=== PATIENT | male | born 1950 | race African-American/Black ===

== ENCOUNTER 2021-11-01 19:17 | Inpatient (IN) | payer OTHER ==
[2021-11-01] MEDS ORDERED: PIPERACILLIN/TAZOB 2.25 GM 2.25 GM in DEXTROSE 5%-WATER - 50 ML IVPB ONE ×3 (20:10→21:21)
[2021-11-01] MEDS ORDERED: VANCOMYCIN 1 GM in D5W (PRE-DOCKED) 1,000 MG/250 ML IVPB ONE (20:10)
[2021-11-01] MEDS ORDERED: PIPERACILLIN/TAZOB 3.375 GM 3.375 GM in DEXTROSE 5%-WATER - 50 ML IVPB ONE (20:22)
[2021-11-01] MEDS ORDERED: PIPERACILLIN/TAZOB 2.25 GM 2.25 GM/50 ML BAG IVPB ONE ×2 (20:24→21:24)
[2021-11-01] MEDS ORDERED: VANCOMYCIN 1 GRAM (PRE-DOCKED) 1,000 MG/250 ML BAG IVPB ONE (20:25)
[2021-11-01 22:03] LABS: BASO % 0.5 % (0-2.0); HEMATOCRIT 33.2 % (35.4-49); HEMOGLOBIN 10.7 GM/dL (11.7-16.9); LYMPH % 45.9 % (8-40); MCH 24.1 pg (25.7-33.7); MCHC 32.3 g/dl (32.0-35.9); MEAN CELL VOLUME 74.7 fl (80-96); MEAN PLT VOLUME 8.7 fl (7.5-11.1); NEUT % 43.6 % (42.8-82.8); PLATELET COUNT 233 10^3/uL (134-434); RBC 4.45 M/mm3 (4.00-5.60); RDW 24.2 % (11.9-15.9); WHITE BLOOD COUNT 7.2 K/mm3 (4.0-10.0)
[2021-11-01 22:05] LABS: CHLORIDE 102 mmol/L (98-107); SODIUM 135 mmol/L (136-145)
[2021-11-01 22:08] LABS: ALBUMIN 3.2 g/dl (3.4-5.0); BLOOD UREA NITROGEN 16.7 mg/dL (7-18); CO2 30 mmol/L (21-32); GLUCOSE,RANDOM 207 mg/dL (74-106)
[2021-11-01 22:11] LABS: SGOT/AST 60 U/L (15-37); SGPT/ALT 38 U/L (13-61)
[2021-11-01 22:13] LABS: BILIRUBIN,TOTAL 0.4 mg/dL (0.2-1); TOT PROT 8.8 g/dl (6.4-8.2)
[2021-11-01 22:14] LABS: ALK PHOS 92 U/L (45-117)
[2021-11-01 22:21] LABS: ANION GAP 3 MMOL/L (8-16)
[2021-11-01 23:24] LABS: ANISOCYTOSIS 1+; MACROCYTOSIS 0; PLATELET ESTIMATE NORMAL; TARGET CELLS 2+
[2021-11-01 23:42] LABS: INR 1.02 (0.83-1.09); PROTHROMBIN TIME (PATIENT) 11.9 SEC (9.7-13.0)
[2021-11-01 23:45] LABS: ACTIVATED PTT 27.8 SECONDS (25.2-36.5)
[2021-11-02 00:29] LABS: BLOOD UREA NITROGEN 17.6 mg/dL (7-18)
[2021-11-02] MEDS ORDERED: VANCOMYCIN 1 GM PREMIX - 1 GM/200 ML BAG IVPB SCH ×2 (08:00→09:00)
[2021-11-02] MEDS ORDERED: VANCOMYCIN 1 GRAM (PRE-DOCKED) 1 GM/250 ML BAG IVPB SCH (09:00)
[2021-11-02] MEDS ORDERED: ENOXAPARIN NA (PORCINE) 40 MG/0.4 ML DISP.SYRIN SQ ONE (09:15)
[2021-11-02] MEDS ORDERED: PIPERACILLIN/TAZOB 3.375 GM 3.375 GM/50 ML BAG IVPB ONE (09:16)
[2021-11-02] MEDS: ENOXAPARIN NA (PORCINE) 40 MG/0.4 ML DISP.SYRIN SQ SCH (09:28)
[2021-11-02] MEDS ORDERED: PIPERACILLIN/TAZOB 3.375 GM 3.375 GM in DEXTROSE 5%-WATER - 50 ML IVPB SCH (10:00)
[2021-11-02 10:26] VITALS: BMI 27.0
[2021-11-02] MEDS: INSULIN SLIDING SCALE (NOVOLOG) 1 VIAL SQ SCH ×3 (11:10→22:23)
[2021-11-02] MEDS ORDERED: DEXTROSE 5%-WATER 100 ML IVPB ONE (13:03)
[2021-11-02] MEDS: CEFTRIAXONE 2 GM in DEXTROSE 5%-WATER 2 GM/100 ML BAG IVPB SCH (13:14)
[2021-11-03] MEDS: INSULIN SLIDING SCALE (NOVOLOG) 1 VIAL SQ SCH ×4 (06:30→21:16)
[2021-11-03] MEDS ORDERED: DEXTROSE 5%-WATER 100 ML IVPB ONE ×2 (09:23→09:27)
[2021-11-03] MEDS: ENOXAPARIN NA (PORCINE) 40 MG/0.4 ML DISP.SYRIN SQ SCH (09:25)
[2021-11-03] MEDS: CEFTRIAXONE 2 GM in DEXTROSE 5%-WATER 2 GM/100 ML BAG IVPB SCH (09:26)
[2021-11-03 10:29] LABS: BASO % 0.8 % (0-2.0); EOS % 2.4 % (0-4.5); HEMATOCRIT 36.4 % (35.4-49); HEMOGLOBIN 11.5 GM/dL (11.7-16.9); MCH 23.5 pg (25.7-33.7); MCHC 31.5 g/dl (32.0-35.9); MEAN CELL VOLUME 74.6 fl (80-96); MEAN PLT VOLUME 8.2 fl (7.5-11.1); MONO % 11.9 % (3.8-10.2); NEUT % 39.9 % (42.8-82.8); PLATELET COUNT 250 10^3/uL (134-434); RBC 4.88 M/mm3 (4.00-5.60); RDW 24.7 % (11.9-15.9); WHITE BLOOD COUNT 4.9 K/mm3 (4.0-10.0)
[2021-11-03 10:44] LABS: ALBUMIN 2.9 g/dl (3.4-5.0); BLOOD UREA NITROGEN 13.7 mg/dL (7-18)
[2021-11-03 10:47] LABS: CREATININE 0.9 mg/dL (0.55-1.3)
[2021-11-03 10:49] LABS: BILIRUBIN,TOTAL 0.2 mg/dL (0.2-1); TOT PROT 7.9 g/dl (6.4-8.2)
[2021-11-03 11:21] LABS: ERYTHROCYTE SEDIMENTATION RATE 23 mm/hr (0-20)
[2021-11-03] MEDS ORDERED: PIPERACILLIN/TAZOBACTAM 3.375 GM VIAL IVPB ONE (16:37)
[2021-11-03] MEDS ORDERED: DEXTROSE 5%-WATER - 50 ML IVPB ONE (16:37)
[2021-11-03] MEDS: PIPERACILLIN/TAZOB 3.375 GM 3.375 GM in DEXTROSE 5%-WATER - 50 ML IVPB SCH (17:35)
[2021-11-04] MEDS ORDERED: PIPERACILLIN/TAZOBACTAM 3.375 GM VIAL IVPB ONE ×3 (00:03→16:50)
[2021-11-04] MEDS ORDERED: DEXTROSE 5%-WATER - 50 ML IVPB ONE ×2 (00:03→11:27)
[2021-11-04] MEDS: PIPERACILLIN/TAZOB 3.375 GM 3.375 GM in DEXTROSE 5%-WATER - 50 ML IVPB SCH ×3 (01:04→17:23)
[2021-11-04] MEDS: INSULIN SLIDING SCALE (NOVOLOG) 1 VIAL SQ SCH ×4 (06:19→21:22)
[2021-11-04] MEDS ORDERED: LIDOCAINE HCL 1%, 10 MG/ML (20ML VIAL) ONE (08:29)
[2021-11-04] MEDS ORDERED: MIDAZOLAM HCL 2 MG/2 ML SINGLE DOSE VIAL ONE ×2 (08:38→08:49)
[2021-11-04] MEDS ORDERED: LIDOCAINE HCL 1%, 10 MG/ML (20ML VIAL) NR ONE (08:43)
[2021-11-04] MEDS: ENOXAPARIN NA (PORCINE) 40 MG/0.4 ML DISP.SYRIN SQ SCH (09:00)
[2021-11-04] MEDS ORDERED: ACETAMINOPHEN 325 MG TABLET (FP) PO PRN (09:49)
[2021-11-04] MEDS ORDERED: ONDANSETRON 4 MG/2 ML VIAL IVPUSH PRN (09:49)
[2021-11-04] MEDS ORDERED: JANUMET PO SCH ×2 (10:00)
[2021-11-04] MEDS ORDERED: LANTUS 20 UNIT SQ SCH (10:00)
[2021-11-04] MEDS ORDERED: PATIENT'S OWN MEDICATION (NON-FORMULARY) (Jardiance 10 MG) PO SCH ×2 (10:00)
[2021-11-04] MEDS ORDERED: COZAAR PO SCH (10:00)
[2021-11-04] MEDS ORDERED: PATIENT'S OWN MEDICATION (NON-FORMULARY) (Asa - 81 MG) PO SCH (10:00)
[2021-11-04] MEDS: ASPIRIN COATED 81 MG TABLET.EC PO SCH (11:34)
[2021-11-04] MEDS: LOSARTAN POTASSIUM 25 MG TABLET PO SCH (11:34)
[2021-11-04] MEDS: metFORMIN HCL 500 MG TABLET (FP) PO SCH (17:22)
[2021-11-04] MEDS: sitaGLIPtin PHOSPHATE 50 MG TABLET PO SCH (17:22)
[2021-11-04] MEDS: ROSUVASTATIN CA 5 MG TABLET PO SCH (21:22)
[2021-11-04] MEDS ORDERED: ROSUVASTATIN CA 5 MG TABLET PO SCH (22:00)
[2021-11-05] MEDS ORDERED: PIPERACILLIN/TAZOBACTAM 3.375 GM VIAL IVPB ONE ×4 (02:19→16:42)
[2021-11-05] MEDS ORDERED: DEXTROSE 5%-WATER - 50 ML IVPB ONE ×3 (02:20→16:42)
[2021-11-05] MEDS: PIPERACILLIN/TAZOB 3.375 GM 3.375 GM in DEXTROSE 5%-WATER - 50 ML IVPB SCH ×3 (02:21→18:18)
[2021-11-05] MEDS: INSULIN (LEVEMIR) 100 UNITS/ML UNITS SQ SCH (06:23)
[2021-11-05] MEDS: sitaGLIPtin PHOSPHATE 50 MG TABLET PO SCH ×2 (06:23→17:21)
[2021-11-05] MEDS: INSULIN SLIDING SCALE (NOVOLOG) 1 VIAL SQ SCH ×4 (06:23→21:55)
[2021-11-05] MEDS: metFORMIN HCL 500 MG TABLET (FP) PO SCH ×2 (06:23→17:21)
[2021-11-05] MEDS ORDERED: INSULIN (NOVOLOG) ASPART 100 UNITS/ML 10ML VIAL ONE ×2 (07:04→10:37)
[2021-11-05 09:25] LABS: BASO % 0.3 % (0-2.0); EOS % 2.4 % (0-4.5); HEMATOCRIT 35.7 % (35.4-49); HEMOGLOBIN 11.4 GM/dL (11.7-16.9); LYMPH % 37.5 % (8-40); MCH 23.6 pg (25.7-33.7); MCHC 31.9 g/dl (32.0-35.9); MEAN CELL VOLUME 74.1 fl (80-96); MEAN PLT VOLUME 8.1 fl (7.5-11.1); MONO % 14.2 % (3.8-10.2); NEUT % 45.6 % (42.8-82.8); PLATELET COUNT 246 10^3/uL (134-434); RBC 4.82 M/mm3 (4.00-5.60); RDW 24.6 % (11.9-15.9); WHITE BLOOD COUNT 6.2 K/mm3 (4.0-10.0)
[2021-11-05 10:01] LABS: ALBUMIN 2.8 g/dl (3.4-5.0); BLOOD UREA NITROGEN 12.1 mg/dL (7-18); CALCIUM 8.8 mg/dL (8.5-10.1)
[2021-11-05 10:06] LABS: BILIRUBIN,TOTAL 0.9 mg/dL (0.2-1)
[2021-11-05 10:07] LABS: TOT PROT 7.4 g/dl (6.4-8.2)
[2021-11-05] MEDS: ENOXAPARIN NA (PORCINE) 40 MG/0.4 ML DISP.SYRIN SQ SCH (11:00)
[2021-11-05] MEDS: LOSARTAN POTASSIUM 25 MG TABLET PO SCH (11:00)
[2021-11-05] MEDS: ASPIRIN COATED 81 MG TABLET.EC PO SCH (11:00)
[2021-11-05] MEDS: ROSUVASTATIN CA 5 MG TABLET PO SCH (21:54)
[2021-11-06] MEDS ORDERED: DEXTROSE 5%-WATER - 50 ML IVPB ONE ×3 (01:39→16:56)
[2021-11-06] MEDS ORDERED: PIPERACILLIN/TAZOBACTAM 3.375 GM VIAL IVPB ONE ×3 (01:39→16:56)
[2021-11-06] MEDS: PIPERACILLIN/TAZOB 3.375 GM 3.375 GM in DEXTROSE 5%-WATER - 50 ML IVPB SCH ×3 (01:52→17:00)
[2021-11-06] MEDS: metFORMIN HCL 500 MG TABLET (FP) PO SCH ×2 (06:50→16:37)
[2021-11-06] MEDS: sitaGLIPtin PHOSPHATE 50 MG TABLET PO SCH ×2 (06:51→16:37)
[2021-11-06] MEDS: INSULIN (LEVEMIR) 100 UNITS/ML UNITS SQ SCH (06:51)
[2021-11-06] MEDS: INSULIN SLIDING SCALE (NOVOLOG) 1 VIAL SQ SCH ×4 (06:52→21:26)
[2021-11-06] MEDS: ENOXAPARIN NA (PORCINE) 40 MG/0.4 ML DISP.SYRIN SQ SCH (09:34)
[2021-11-06] MEDS: ASPIRIN COATED 81 MG TABLET.EC PO SCH (09:34)
[2021-11-06] MEDS: LOSARTAN POTASSIUM 25 MG TABLET PO SCH (09:34)
[2021-11-06 10:54] LABS: BASO % 0.5 % (0-2.0); EOS % 2.3 % (0-4.5); HEMATOCRIT 36.8 % (35.4-49); HEMOGLOBIN 11.5 GM/dL (11.7-16.9); LYMPH % 35.8 % (8-40); MCH 23.7 pg (25.7-33.7); MCHC 31.3 g/dl (32.0-35.9); MEAN CELL VOLUME 75.6 fl (80-96); MEAN PLT VOLUME 8.3 fl (7.5-11.1); MONO % 13.8 % (3.8-10.2); NEUT % 47.6 % (42.8-82.8); PLATELET COUNT 244 10^3/uL (134-434); RBC 4.87 M/mm3 (4.00-5.60); RDW 25.2 % (11.9-15.9); WHITE BLOOD COUNT 7.1 K/mm3 (4.0-10.0)
[2021-11-06 11:21] LABS: ALBUMIN 2.8 g/dl (3.4-5.0); CALCIUM 9.2 mg/dL (8.5-10.1)
[2021-11-06 11:26] LABS: BILIRUBIN,TOTAL 0.5 mg/dL (0.2-1); TOT PROT 7.6 g/dl (6.4-8.2)
[2021-11-06] MEDS: ROSUVASTATIN CA 5 MG TABLET PO SCH (21:26)
[2021-11-07] MEDS ORDERED: PIPERACILLIN/TAZOBACTAM 3.375 GM VIAL IVPB ONE ×3 (01:21→17:20)
[2021-11-07] MEDS ORDERED: DEXTROSE 5%-WATER - 50 ML IVPB ONE ×3 (01:21→17:20)
[2021-11-07] MEDS: PIPERACILLIN/TAZOB 3.375 GM 3.375 GM in DEXTROSE 5%-WATER - 50 ML IVPB SCH ×3 (01:29→17:22)
[2021-11-07] MEDS: sitaGLIPtin PHOSPHATE 50 MG TABLET PO SCH ×2 (06:22→17:10)
[2021-11-07] MEDS: metFORMIN HCL 500 MG TABLET (FP) PO SCH ×2 (06:22→17:10)
[2021-11-07] MEDS: INSULIN (LEVEMIR) 100 UNITS/ML UNITS SQ SCH (06:47)
[2021-11-07] MEDS: INSULIN SLIDING SCALE (NOVOLOG) 1 VIAL SQ SCH ×4 (06:48→21:15)
[2021-11-07] MEDS: LOSARTAN POTASSIUM 25 MG TABLET PO SCH (09:20)
[2021-11-07] MEDS: ENOXAPARIN NA (PORCINE) 40 MG/0.4 ML DISP.SYRIN SQ SCH (09:20)
[2021-11-07] MEDS: ASPIRIN COATED 81 MG TABLET.EC PO SCH (09:20)
[2021-11-07] MEDS: ROSUVASTATIN CA 5 MG TABLET PO SCH (21:14)
[2021-11-08] MEDS ORDERED: PIPERACILLIN/TAZOBACTAM 3.375 GM VIAL IVPB ONE ×3 (01:28→16:53)
[2021-11-08] MEDS ORDERED: DEXTROSE 5%-WATER - 50 ML IVPB ONE ×3 (01:28→16:53)
[2021-11-08] MEDS: PIPERACILLIN/TAZOB 3.375 GM 3.375 GM in DEXTROSE 5%-WATER - 50 ML IVPB SCH ×3 (01:35→17:28)
[2021-11-08] MEDS: metFORMIN HCL 500 MG TABLET (FP) PO SCH ×2 (06:09→16:57)
[2021-11-08] MEDS: INSULIN SLIDING SCALE (NOVOLOG) 1 VIAL SQ SCH ×4 (06:10→21:21)
[2021-11-08] MEDS: INSULIN (LEVEMIR) 100 UNITS/ML UNITS SQ SCH (06:10)
[2021-11-08] MEDS: sitaGLIPtin PHOSPHATE 50 MG TABLET PO SCH ×2 (06:10→16:57)
[2021-11-08] MEDS: ENOXAPARIN NA (PORCINE) 40 MG/0.4 ML DISP.SYRIN SQ SCH (09:39)
[2021-11-08] MEDS: ASPIRIN COATED 81 MG TABLET.EC PO SCH (09:40)
[2021-11-08] MEDS: LOSARTAN POTASSIUM 25 MG TABLET PO SCH (09:40)
[2021-11-08] MEDS: ROSUVASTATIN CA 5 MG TABLET PO SCH (21:24)
[2021-11-09] MEDS ORDERED: PIPERACILLIN/TAZOBACTAM 3.375 GM VIAL IVPB ONE ×3 (00:43→17:06)
[2021-11-09] MEDS ORDERED: DEXTROSE 5%-WATER - 50 ML IVPB ONE ×3 (00:43→17:07)
[2021-11-09] MEDS: PIPERACILLIN/TAZOB 3.375 GM 3.375 GM in DEXTROSE 5%-WATER - 50 ML IVPB SCH ×3 (01:02→17:43)
[2021-11-09] MEDS: metFORMIN HCL 500 MG TABLET (FP) PO SCH ×2 (06:19→17:12)
[2021-11-09] MEDS: sitaGLIPtin PHOSPHATE 50 MG TABLET PO SCH ×2 (06:19→17:12)
[2021-11-09] MEDS: INSULIN SLIDING SCALE (NOVOLOG) 1 VIAL SQ SCH ×4 (06:20→22:21)
[2021-11-09] MEDS: INSULIN (LEVEMIR) 100 UNITS/ML UNITS SQ SCH (06:21)
[2021-11-09] MEDS: LOSARTAN POTASSIUM 25 MG TABLET PO SCH (09:27)
[2021-11-09] MEDS: ENOXAPARIN NA (PORCINE) 40 MG/0.4 ML DISP.SYRIN SQ SCH (09:27)
[2021-11-09] MEDS: ASPIRIN COATED 81 MG TABLET.EC PO SCH (09:27)
[2021-11-09] MEDS: VANCOMYCIN/WATER BAGS 1,250 MG/250 ML BAG IVPB SCH (19:19)
[2021-11-09] MEDS: ROSUVASTATIN CA 5 MG TABLET PO SCH (21:58)
[2021-11-10] MEDS ORDERED: PIPERACILLIN/TAZOBACTAM 3.375 GM VIAL IVPB ONE ×3 (01:54→16:20)
[2021-11-10] MEDS ORDERED: DEXTROSE 5%-WATER - 50 ML IVPB ONE ×3 (01:55→16:20)
[2021-11-10] MEDS: PIPERACILLIN/TAZOB 3.375 GM 3.375 GM in DEXTROSE 5%-WATER - 50 ML IVPB SCH ×3 (02:42→17:18)
[2021-11-10] MEDS: INSULIN SLIDING SCALE (NOVOLOG) 1 VIAL SQ SCH ×4 (06:05→21:57)
[2021-11-10] MEDS: INSULIN (LEVEMIR) 100 UNITS/ML UNITS SQ SCH (06:05)
[2021-11-10] MEDS ORDERED: PT OWN MED DRAWER 7, Y5N ONE (06:39)
[2021-11-10] MEDS: VANCOMYCIN/WATER BAGS 1,250 MG/250 ML BAG IVPB SCH ×2 (06:41→18:02)
[2021-11-10] MEDS: metFORMIN HCL 500 MG TABLET (FP) PO SCH ×2 (06:41→17:17)
[2021-11-10] MEDS: sitaGLIPtin PHOSPHATE 50 MG TABLET PO SCH ×2 (06:42→17:17)
[2021-11-10 10:40] LABS: HEMATOCRIT 38.4 % (35.4-49); HEMOGLOBIN 11.9 GM/dL (11.7-16.9); MCH 23.5 pg (25.7-33.7); MCHC 31.1 g/dl (32.0-35.9); MEAN CELL VOLUME 75.6 fl (80-96); MEAN PLT VOLUME 7.8 fl (7.5-11.1); PLATELET COUNT 271 10^3/uL (134-434); RBC 5.07 M/mm3 (4.00-5.60); RDW 24.5 % (11.9-15.9); WHITE BLOOD COUNT 5.5 K/mm3 (4.0-10.0)
[2021-11-10] MEDS: ENOXAPARIN NA (PORCINE) 40 MG/0.4 ML DISP.SYRIN SQ SCH (11:01)
[2021-11-10] MEDS: ASPIRIN COATED 81 MG TABLET.EC PO SCH (11:02)
[2021-11-10] MEDS: LOSARTAN POTASSIUM 25 MG TABLET PO SCH (11:02)
[2021-11-10 11:03] LABS: CALCIUM 9.1 mg/dL (8.5-10.1)
[2021-11-10 11:04] LABS: BLOOD UREA NITROGEN 14.6 mg/dL (7-18)
[2021-11-10 11:07] LABS: CREATININE 0.9 mg/dL (0.55-1.3)
[2021-11-10 11:50] LABS: ANISOCYTOSIS 2+; MACROCYTOSIS 0; PLATELET ESTIMATE NORMAL; TARGET CELLS 1+
[2021-11-10] MEDS: ROSUVASTATIN CA 5 MG TABLET PO SCH (21:50)
[2021-11-11] MEDS ORDERED: DEXTROSE 5%-WATER - 50 ML IVPB ONE ×2 (00:55→10:34)
[2021-11-11] MEDS ORDERED: PIPERACILLIN/TAZOBACTAM 3.375 GM VIAL IVPB ONE ×3 (00:55→17:12)
[2021-11-11] MEDS: PIPERACILLIN/TAZOB 3.375 GM 3.375 GM in DEXTROSE 5%-WATER - 50 ML IVPB SCH ×3 (01:03→17:19)
[2021-11-11] MEDS: INSULIN (LEVEMIR) 100 UNITS/ML UNITS SQ SCH (06:08)
[2021-11-11] MEDS: sitaGLIPtin PHOSPHATE 50 MG TABLET PO SCH ×2 (06:12→17:19)
[2021-11-11] MEDS: INSULIN SLIDING SCALE (NOVOLOG) 1 VIAL SQ SCH ×4 (06:12→21:37)
[2021-11-11] MEDS: metFORMIN HCL 500 MG TABLET (FP) PO SCH ×2 (06:12→17:19)
[2021-11-11] MEDS: VANCOMYCIN/WATER BAGS 1,250 MG/250 ML BAG IVPB SCH ×2 (06:36→18:22)
[2021-11-11] MEDS: LOSARTAN POTASSIUM 25 MG TABLET PO SCH (10:36)
[2021-11-11] MEDS: ASPIRIN COATED 81 MG TABLET.EC PO SCH (10:36)
[2021-11-11] MEDS ORDERED: SODIUM CHLORIDE 50 ML IVPB ONE (17:12)
[2021-11-11] MEDS ORDERED: PIPERACILLIN/TAZOB 3.375 GM 3.375 GM in SODIUM CHLORIDE 50 ML IVPB SCH (18:00)
[2021-11-11] MEDS: ROSUVASTATIN CA 5 MG TABLET PO SCH (21:30)
[2021-11-12] MEDS ORDERED: PIPERACILLIN/TAZOBACTAM 3.375 GM VIAL IVPB ONE ×3 (00:46→16:43)
[2021-11-12] MEDS ORDERED: DEXTROSE 5%-WATER - 50 ML IVPB ONE ×3 (00:46→16:43)
[2021-11-12] MEDS: PIPERACILLIN/TAZOB 3.375 GM 3.375 GM in DEXTROSE 5%-WATER - 50 ML IVPB SCH ×3 (01:19→17:28)
[2021-11-12] MEDS ORDERED: PT OWN MED DRAWER 7, Y5N ONE ×3 (04:51→20:54)
[2021-11-12] MEDS: VANCOMYCIN/WATER BAGS 1,250 MG/250 ML BAG IVPB SCH ×2 (05:38→18:04)
[2021-11-12] MEDS: INSULIN (LEVEMIR) 100 UNITS/ML UNITS SQ SCH (06:06)
[2021-11-12] MEDS: metFORMIN HCL 500 MG TABLET (FP) PO SCH ×3 (06:06→17:27)
[2021-11-12] MEDS: sitaGLIPtin PHOSPHATE 50 MG TABLET PO SCH ×3 (06:06→17:27)
[2021-11-12] MEDS: INSULIN SLIDING SCALE (NOVOLOG) 1 VIAL SQ SCH ×4 (06:07→21:07)
[2021-11-12] MEDS: ASPIRIN COATED 81 MG TABLET.EC PO SCH (09:00)
[2021-11-12] MEDS: LOSARTAN POTASSIUM 25 MG TABLET PO SCH (09:00)
[2021-11-12] MEDS: ROSUVASTATIN CA 5 MG TABLET PO SCH (21:06)
[2021-11-13] MEDS ORDERED: PIPERACILLIN/TAZOBACTAM 3.375 GM VIAL IVPB ONE ×3 (00:57→17:21)
[2021-11-13] MEDS ORDERED: DEXTROSE 5%-WATER - 50 ML IVPB ONE ×3 (00:57→17:21)
[2021-11-13] MEDS: PIPERACILLIN/TAZOB 3.375 GM 3.375 GM in DEXTROSE 5%-WATER - 50 ML IVPB SCH ×3 (01:09→17:29)
[2021-11-13] MEDS: VANCOMYCIN/WATER BAGS 1,250 MG/250 ML BAG IVPB SCH ×2 (05:31→18:22)
[2021-11-13] MEDS: sitaGLIPtin PHOSPHATE 50 MG TABLET PO SCH ×2 (05:59→16:31)
[2021-11-13] MEDS: INSULIN (LEVEMIR) 100 UNITS/ML UNITS SQ SCH (05:59)
[2021-11-13] MEDS: metFORMIN HCL 500 MG TABLET (FP) PO SCH ×2 (05:59→16:31)
[2021-11-13] MEDS: INSULIN SLIDING SCALE (NOVOLOG) 1 VIAL SQ SCH ×4 (06:00→23:03)
[2021-11-13 09:47] LABS: BASO % 0.4 % (0-2.0); EOS % 2.4 % (0-4.5); HEMATOCRIT 38.5 % (35.4-49); HEMOGLOBIN 12.1 GM/dL (11.7-16.9); LYMPH % 50.6 % (8-40); MCH 23.8 pg (25.7-33.7); MCHC 31.3 g/dl (32.0-35.9); MEAN CELL VOLUME 75.8 fl (80-96); MEAN PLT VOLUME 8.7 fl (7.5-11.1); MONO % 9.3 % (3.8-10.2); NEUT % 37.3 % (42.8-82.8); PLATELET COUNT 293 10^3/uL (134-434); RBC 5.08 M/mm3 (4.00-5.60); RDW 24.2 % (11.9-15.9); WHITE BLOOD COUNT 4.7 K/mm3 (4.0-10.0)
[2021-11-13 10:11] LABS: BLOOD UREA NITROGEN 13.5 mg/dL (7-18); CALCIUM 9.1 mg/dL (8.5-10.1)
[2021-11-13 10:15] LABS: BILIRUBIN,TOTAL 0.4 mg/dL (0.2-1)
[2021-11-13] MEDS: ASPIRIN COATED 81 MG TABLET.EC PO SCH (10:25)
[2021-11-13] MEDS: LOSARTAN POTASSIUM 25 MG TABLET PO SCH (10:25)
[2021-11-13] MEDS ORDERED: PT OWN MED DRAWER 7, Y5N ONE (17:21)
[2021-11-13] MEDS: ROSUVASTATIN CA 5 MG TABLET PO SCH (23:03)
[2021-11-14] MEDS ORDERED: DEXTROSE 5%-WATER - 50 ML IVPB ONE ×2 (01:50→10:52)
[2021-11-14] MEDS ORDERED: PIPERACILLIN/TAZOBACTAM 3.375 GM VIAL IVPB ONE ×3 (01:50→17:24)
[2021-11-14] MEDS: PIPERACILLIN/TAZOB 3.375 GM 3.375 GM in DEXTROSE 5%-WATER - 50 ML IVPB SCH ×3 (01:57→17:28)
[2021-11-14] MEDS ORDERED: PT OWN MED DRAWER 7, Y5N ONE ×2 (06:49→17:27)
[2021-11-14] MEDS: metFORMIN HCL 500 MG TABLET (FP) PO SCH ×2 (06:55→16:30)
[2021-11-14] MEDS: INSULIN SLIDING SCALE (NOVOLOG) 1 VIAL SQ SCH ×3 (06:55→16:30)
[2021-11-14] MEDS: sitaGLIPtin PHOSPHATE 50 MG TABLET PO SCH ×2 (06:55→16:30)
[2021-11-14] MEDS: INSULIN (LEVEMIR) 100 UNITS/ML UNITS SQ SCH (06:55)
[2021-11-14] MEDS: VANCOMYCIN/WATER BAGS 1,250 MG/250 ML BAG IVPB SCH ×2 (07:38→18:01)
[2021-11-14] MEDS: ASPIRIN COATED 81 MG TABLET.EC PO SCH (10:52)
[2021-11-14] MEDS: LOSARTAN POTASSIUM 25 MG TABLET PO SCH (10:53)
[2021-11-14 14:36] VITALS: BP 135/60; PULSE 67; TEMP 98.1
[2021-11-14] MEDS ORDERED: INSULIN (NOVOLOG) ASPART 100 UNITS/ML 10ML VIAL ONE (17:26)
== END 2021-11-14 18:52 | disposition home health service (06) | DRG 617 ==
LOC: JER 19:17 → JERBED 20:21 → J6S 11-02 09:42
PROVIDERS: ADMIT Internal Medicine; ATTEND Internal Medicine
PROC: 0QBN0ZX Excision of Right Metatarsal, Open Approach, Diagnostic (ICD-10-PCS; 2021-11-04)
PROC: 0QBQ0ZX Excision of Right Toe Phalanx, Open Approach, Diagnostic (ICD-10-PCS; 2021-11-04)
PROC: 0Y6R0Z0 Detachment at Right 2nd Toe, Complete, Open Approach (ICD-10-PCS; principal; 2021-11-04 08:00)
PROC: 02HV33Z Insertion of Infusion Device into Superior Vena Cava, Percutaneous Approach (ICD-10-PCS; 2021-11-14)
PROC: B518ZZA Fluoroscopy of Superior Vena Cava, Guidance (ICD-10-PCS; 2021-11-14)
DX: E11.69 Type 2 diabetes mellitus with other specified complication (principal); M86.8X7 Other osteomyelitis, ankle and foot; E13.621 Other specified diabetes mellitus with foot ulcer; L97.518 Non-pressure chronic ulcer of other part of right foot with other specified severity; B95.2 Enterococcus as the cause of diseases classified elsewhere; B95.61 Methicillin susceptible Staphylococcus aureus infection as the cause of diseases classified elsewhere; I10 Essential (primary) hypertension; E78.5 Hyperlipidemia, unspecified
CPT/HCPCS: 36415; 36569; 73630-TC-RT-FY; 73719; 80048; 80053; 82962; 83036; 85025; 85610; 85651; 85730; 86140; 86850; 86900; 86901; 87040; 87070; 87075; 87186; 87205; 88305-TC; 88311-TC; 93005; 93010; 94760; 97116-GP; 97162-GP; 99285-25; C9803; G0480; U0003; U0005

== ENCOUNTER 2022-02-23 08:52 | Inpatient (IN) | payer OTHER ==
[2022-02-23 09:07] VITALS: BMI 28.2
[2022-02-23] MEDS ORDERED: VANCOMYCIN 1 GM in D5W (PRE-DOCKED) 1,000 MG/250 ML IVPB ONE (09:35)
[2022-02-23] MEDS ORDERED: PIPERACILLIN/TAZOB 4.5 GM 4.5 GM in DEXTROSE 5%-WATER 100 ML IVPB ONE (09:37)
[2022-02-23] MEDS ORDERED: VANCOMYCIN 1 GRAM (PRE-DOCKED) 1,000 MG/250 ML BAG IVPB ONE (10:21)
[2022-02-23] MEDS ORDERED: PIPERACILLIN/TAZOB 4.5 GM 4.5 GM/100 ML BAG IVPB ONE (10:21)
[2022-02-23 10:50] LABS: BASO % 0.5 % (0-2.0); EOS % 1.2 % (0-4.5); HEMOGLOBIN 12.5 GM/dL (11.7-16.9); LYMPH % 20.4 % (8-40); MCH 25.2 pg (25.7-33.7); MCHC 32.9 g/dl (32.0-35.9); MEAN CELL VOLUME 76.4 fl (80-96); MEAN PLT VOLUME 8.7 fl (7.5-11.1); NEUT % 67.9 % (42.8-82.8); PLATELET COUNT 204 10^3/uL (134-434); RBC 4.97 M/mm3 (4.00-5.60); RDW 16.8 % (11.9-15.9); WHITE BLOOD COUNT 9.8 K/mm3 (4.0-10.0)
[2022-02-23 11:06] LABS: CALCIUM 9.1 mg/dL (8.5-10.1)
[2022-02-23 11:07] LABS: ALBUMIN 3.3 g/dl (3.4-5.0)
[2022-02-23 11:09] LABS: CREATININE 1.1 mg/dL (0.55-1.3)
[2022-02-23 11:11] LABS: BILIRUBIN,TOTAL 0.4 mg/dL (0.2-1); TOT PROT 8.2 g/dl (6.4-8.2)
[2022-02-23 11:28] LABS: ERYTHROCYTE SEDIMENTATION RATE 53 mm/hr (0-20)
[2022-02-23] MEDS ORDERED: PIPERACILLIN/TAZOB 3.375 GM 3.375 GM/50 ML BAG IVPB ONE (17:56)
[2022-02-23] MEDS: PIPERACILLIN/TAZOB 3.375 GM 3.375 GM in DEXTROSE 5%-WATER - 50 ML IVPB SCH (18:12)
[2022-02-24] MEDS ORDERED: PIPERACILLIN/TAZOBACTAM 3.375 GM VIAL IVPB ONE ×3 (01:36→16:37)
[2022-02-24] MEDS ORDERED: DEXTROSE 5%-WATER - 50 ML IVPB ONE ×3 (01:37→16:37)
[2022-02-24] MEDS: PIPERACILLIN/TAZOB 3.375 GM 3.375 GM in DEXTROSE 5%-WATER - 50 ML IVPB SCH ×3 (02:21→18:00)
[2022-02-24] MEDS: INSULIN SLIDING SCALE (NOVOLOG) 1 VIAL SQ SCH ×4 (06:14→23:25)
[2022-02-24] MEDS: metFORMIN HCL 500 MG TABLET (FP) PO SCH ×2 (09:22→17:03)
[2022-02-24] MEDS: LOSARTAN POTASSIUM 25 MG TABLET PO SCH (09:23)
[2022-02-24] MEDS: ASPIRIN 81 MG CHEWABLE TABLETS PO SCH (09:23)
[2022-02-24] MEDS: HEPARIN NA (PORCINE) 5,000 UNITS/ML 1ML VIAL SQ SCH ×2 (09:24→21:47)
[2022-02-24] MEDS: ROSUVASTATIN CA 5 MG TABLET PO SCH (21:50)
[2022-02-25] MEDS ORDERED: DEXTROSE 5%-WATER - 50 ML IVPB ONE ×3 (01:26→16:32)
[2022-02-25] MEDS ORDERED: PIPERACILLIN/TAZOBACTAM 3.375 GM VIAL IVPB ONE ×3 (01:26→16:32)
[2022-02-25] MEDS: PIPERACILLIN/TAZOB 3.375 GM 3.375 GM in DEXTROSE 5%-WATER - 50 ML IVPB SCH ×3 (01:53→17:34)
[2022-02-25] MEDS: INSULIN SLIDING SCALE (NOVOLOG) 1 VIAL SQ SCH ×4 (06:03→22:03)
[2022-02-25] MEDS: metFORMIN HCL 500 MG TABLET (FP) PO SCH ×2 (09:54→16:49)
[2022-02-25] MEDS: LOSARTAN POTASSIUM 25 MG TABLET PO SCH (09:55)
[2022-02-25] MEDS: ASPIRIN 81 MG CHEWABLE TABLETS PO SCH (09:55)
[2022-02-25] MEDS: HEPARIN NA (PORCINE) 5,000 UNITS/ML 1ML VIAL SQ SCH ×2 (09:55→22:03)
[2022-02-25] MEDS: ROSUVASTATIN CA 5 MG TABLET PO SCH (22:03)
[2022-02-26] MEDS ORDERED: PIPERACILLIN/TAZOBACTAM 3.375 GM VIAL IVPB ONE ×3 (01:22→16:24)
[2022-02-26] MEDS ORDERED: DEXTROSE 5%-WATER - 50 ML IVPB ONE ×3 (01:23→16:24)
[2022-02-26] MEDS: PIPERACILLIN/TAZOB 3.375 GM 3.375 GM in DEXTROSE 5%-WATER - 50 ML IVPB SCH ×3 (01:35→17:00)
[2022-02-26] MEDS: metFORMIN HCL 500 MG TABLET (FP) PO SCH ×2 (06:39→16:32)
[2022-02-26] MEDS: INSULIN SLIDING SCALE (NOVOLOG) 1 VIAL SQ SCH ×4 (06:39→22:00)
[2022-02-26] MEDS: HEPARIN NA (PORCINE) 5,000 UNITS/ML 1ML VIAL SQ SCH ×2 (09:57→22:00)
[2022-02-26] MEDS: LOSARTAN POTASSIUM 25 MG TABLET PO SCH (09:57)
[2022-02-26] MEDS: ASPIRIN 81 MG CHEWABLE TABLETS PO SCH (09:57)
[2022-02-26] MEDS: ROSUVASTATIN CA 5 MG TABLET PO SCH (21:59)
[2022-02-27] MEDS ORDERED: PIPERACILLIN/TAZOBACTAM 3.375 GM VIAL IVPB ONE ×4 (02:30→17:05)
[2022-02-27] MEDS ORDERED: DEXTROSE 5%-WATER - 50 ML IVPB ONE ×4 (02:30→17:06)
[2022-02-27] MEDS: PIPERACILLIN/TAZOB 3.375 GM 3.375 GM in DEXTROSE 5%-WATER - 50 ML IVPB SCH ×3 (02:56→17:53)
[2022-02-27] MEDS: INSULIN SLIDING SCALE (NOVOLOG) 1 VIAL SQ SCH ×4 (06:06→23:18)
[2022-02-27 08:54] LABS: EOS % 5.1 % (0-4.5); HEMATOCRIT 39.6 % (35.4-49); HEMOGLOBIN 12.9 GM/dL (11.7-16.9); LYMPH % 37.4 % (8-40); MCHC 32.6 g/dl (32.0-35.9); MEAN CELL VOLUME 76.5 fl (80-96); MEAN PLT VOLUME 7.3 fl (7.5-11.1); MONO % 16.9 % (3.8-10.2); NEUT % 39.6 % (42.8-82.8); PLATELET COUNT 248 10^3/uL (134-434); RBC 5.18 M/mm3 (4.00-5.60); RDW 16.8 % (11.9-15.9); WHITE BLOOD COUNT 4.2 K/mm3 (4.0-10.0)
[2022-02-27] MEDS: HEPARIN NA (PORCINE) 5,000 UNITS/ML 1ML VIAL SQ SCH ×2 (09:04→23:18)
[2022-02-27] MEDS: ASPIRIN 81 MG CHEWABLE TABLETS PO SCH (09:06)
[2022-02-27] MEDS: metFORMIN HCL 500 MG TABLET (FP) PO SCH ×2 (09:06→16:21)
[2022-02-27] MEDS: LOSARTAN POTASSIUM 25 MG TABLET PO SCH (09:06)
[2022-02-27 09:16] LABS: ALBUMIN 2.9 g/dl (3.4-5.0); CALCIUM 8.9 mg/dL (8.5-10.1)
[2022-02-27 09:19] LABS: CREATININE 0.9 mg/dL (0.55-1.3)
[2022-02-27 09:20] LABS: TOT PROT 7.5 g/dl (6.4-8.2)
[2022-02-27 09:21] LABS: BILIRUBIN,TOTAL 0.3 mg/dL (0.2-1)
[2022-02-27] MEDS: ROSUVASTATIN CA 5 MG TABLET PO SCH (23:18)
[2022-02-28] MEDS ORDERED: DEXTROSE 5%-WATER - 50 ML IVPB ONE ×2 (01:24→16:18)
[2022-02-28] MEDS ORDERED: PIPERACILLIN/TAZOBACTAM 3.375 GM VIAL IVPB ONE ×4 (01:24→16:18)
[2022-02-28] MEDS: PIPERACILLIN/TAZOB 3.375 GM 3.375 GM in DEXTROSE 5%-WATER - 50 ML IVPB SCH ×3 (02:54→17:10)
[2022-02-28] MEDS: metFORMIN HCL 500 MG TABLET (FP) PO SCH ×2 (06:56→17:26)
[2022-02-28] MEDS: INSULIN SLIDING SCALE (NOVOLOG) 1 VIAL SQ SCH ×4 (07:05→23:40)
[2022-02-28] MEDS: HEPARIN NA (PORCINE) 5,000 UNITS/ML 1ML VIAL SQ SCH (10:24)
[2022-02-28] MEDS: ASPIRIN 81 MG CHEWABLE TABLETS PO SCH (10:24)
[2022-02-28] MEDS: LOSARTAN POTASSIUM 25 MG TABLET PO SCH (10:24)
[2022-02-28] MEDS: ROSUVASTATIN CA 5 MG TABLET PO SCH (23:20)
[2022-03-01] MEDS ORDERED: DEXTROSE 5%-WATER - 50 ML IVPB ONE ×3 (00:59→16:53)
[2022-03-01] MEDS ORDERED: PIPERACILLIN/TAZOBACTAM 3.375 GM VIAL IVPB ONE ×3 (00:59→16:53)
[2022-03-01] MEDS: PIPERACILLIN/TAZOB 3.375 GM 3.375 GM in DEXTROSE 5%-WATER - 50 ML IVPB SCH ×3 (01:21→16:59)
[2022-03-01 02:28] LABS: INR 1.03 (0.83-1.09); PROTHROMBIN TIME (PATIENT) 11.8 SEC (9.7-13.0)
[2022-03-01] MEDS: INSULIN SLIDING SCALE (NOVOLOG) 1 VIAL SQ SCH ×4 (07:05→21:21)
[2022-03-01] MEDS: metFORMIN HCL 500 MG TABLET (FP) PO SCH ×2 (07:05→16:55)
[2022-03-01] MEDS ORDERED: DEXAMETHASONE SOD PHOSPHATE 4 MG/1 ML VIAL ONE (07:24)
[2022-03-01] MEDS ORDERED: LIDOCAINE HCL 1%, 10 MG/ML (20ML VIAL) ONE (07:24)
[2022-03-01] MEDS ORDERED: BUPIVACAINE HCL/PF 0.5% (5MG/ML) 10 ML VIAL ONE (07:24)
[2022-03-01] MEDS ORDERED: MIDAZOLAM HCL 2 MG/2 ML SINGLE DOSE VIAL ONE (07:39)
[2022-03-01] MEDS ORDERED: PROPOFOL 20 ML ONE (07:44)
[2022-03-01] MEDS ORDERED: LIDOCAINE HCL 1%, 10 MG/ML (20ML VIAL) NR ONE (07:58)
[2022-03-01] MEDS ORDERED: BUPIVACAINE HCL/PF 0.5% (5MG/ML) 10 ML VIAL IJ ONE (07:58)
[2022-03-01] MEDS ORDERED: ONDANSETRON 4 MG/2 ML VIAL IVPUSH PRN (08:24)
[2022-03-01] MEDS ORDERED: LACTATED RINGERS SOLUTION 1,000 ML IV SCH (08:30)
[2022-03-01 09:37] LABS: BASO % 0.5 % (0-2.0); EOS % 3.2 % (0-4.5); HEMATOCRIT 38.5 % (35.4-49); HEMOGLOBIN 12.3 GM/dL (11.7-16.9); MCH 24.5 pg (25.7-33.7); MCHC 31.9 g/dl (32.0-35.9); MEAN CELL VOLUME 76.8 fl (80-96); MEAN PLT VOLUME 7.3 fl (7.5-11.1); MONO % 18.3 % (3.8-10.2); PLATELET COUNT 268 10^3/uL (134-434); RBC 5.01 M/mm3 (4.00-5.60); WHITE BLOOD COUNT 5.7 K/mm3 (4.0-10.0)
[2022-03-01] MEDS: LOSARTAN POTASSIUM 25 MG TABLET PO SCH (10:08)
[2022-03-01] MEDS: HEPARIN NA (PORCINE) 5,000 UNITS/ML 1ML VIAL SQ SCH (13:32)
[2022-03-01] MEDS: ROSUVASTATIN CA 5 MG TABLET PO SCH (21:20)
[2022-03-02] MEDS ORDERED: PIPERACILLIN/TAZOBACTAM 3.375 GM VIAL IVPB ONE ×4 (01:22→23:39)
[2022-03-02] MEDS ORDERED: DEXTROSE 5%-WATER - 50 ML IVPB ONE ×4 (01:23→23:39)
[2022-03-02] MEDS: PIPERACILLIN/TAZOB 3.375 GM 3.375 GM in DEXTROSE 5%-WATER - 50 ML IVPB SCH ×3 (02:53→17:02)
[2022-03-02] MEDS: metFORMIN HCL 500 MG TABLET (FP) PO SCH ×2 (06:37→16:15)
[2022-03-02] MEDS: INSULIN SLIDING SCALE (NOVOLOG) 1 VIAL SQ SCH ×4 (06:38→23:08)
[2022-03-02 08:41] LABS: BASO % 1.1 % (0-2.0); EOS % 1.2 % (0-4.5); HEMOGLOBIN 12.8 GM/dL (11.7-16.9); LYMPH % 28.6 % (8-40); MCH 24.6 pg (25.7-33.7); MCHC 32.1 g/dl (32.0-35.9); MEAN CELL VOLUME 76.6 fl (80-96); MEAN PLT VOLUME 7.4 fl (7.5-11.1); NEUT % 54.1 % (42.8-82.8); PLATELET COUNT 292 10^3/uL (134-434); RBC 5.22 M/mm3 (4.00-5.60); RDW 17.2 % (11.9-15.9)
[2022-03-02] MEDS: LOSARTAN POTASSIUM 25 MG TABLET PO SCH (09:00)
[2022-03-02 09:04] LABS: CALCIUM 9.1 mg/dL (8.5-10.1)
[2022-03-02 09:05] LABS: ALBUMIN 2.9 g/dl (3.4-5.0); BLOOD UREA NITROGEN 13.7 mg/dL (7-18)
[2022-03-02 09:08] LABS: CREATININE 1.1 mg/dL (0.55-1.3)
[2022-03-02 09:10] LABS: BILIRUBIN,TOTAL 0.3 mg/dL (0.2-1); TOT PROT 7.3 g/dl (6.4-8.2)
[2022-03-02] MEDS: ROSUVASTATIN CA 5 MG TABLET PO SCH (23:02)
[2022-03-03] MEDS: PIPERACILLIN/TAZOB 3.375 GM 3.375 GM in DEXTROSE 5%-WATER - 50 ML IVPB SCH ×3 (02:18→17:45)
[2022-03-03] MEDS: metFORMIN HCL 500 MG TABLET (FP) PO SCH ×2 (06:55→17:45)
[2022-03-03] MEDS: INSULIN SLIDING SCALE (NOVOLOG) 1 VIAL SQ SCH ×4 (06:58→22:00)
[2022-03-03] MEDS ORDERED: PIPERACILLIN/TAZOBACTAM 3.375 GM VIAL IVPB ONE ×2 (11:12→17:43)
[2022-03-03] MEDS ORDERED: DEXTROSE 5%-WATER - 50 ML IVPB ONE ×2 (11:12→17:43)
[2022-03-03] MEDS: LOSARTAN POTASSIUM 25 MG TABLET PO SCH (11:15)
[2022-03-03] MEDS: VANCOMYCIN/WATER 1250 MG 1,250 MG/250 ML BAG IVPB SCH (20:32)
[2022-03-03] MEDS: ROSUVASTATIN CA 5 MG TABLET PO SCH (22:00)
[2022-03-04] MEDS ORDERED: PIPERACILLIN/TAZOBACTAM 3.375 GM VIAL IVPB ONE ×3 (01:04→17:29)
[2022-03-04] MEDS ORDERED: DEXTROSE 5%-WATER - 50 ML IVPB ONE ×3 (01:05→17:30)
[2022-03-04] MEDS: PIPERACILLIN/TAZOB 3.375 GM 3.375 GM in DEXTROSE 5%-WATER - 50 ML IVPB SCH ×3 (01:22→17:31)
[2022-03-04] MEDS: metFORMIN HCL 500 MG TABLET (FP) PO SCH ×2 (06:57→17:31)
[2022-03-04] MEDS: INSULIN SLIDING SCALE (NOVOLOG) 1 VIAL SQ SCH ×4 (06:57→21:20)
[2022-03-04] MEDS: LOSARTAN POTASSIUM 25 MG TABLET PO SCH (10:26)
[2022-03-04] MEDS: VANCOMYCIN/WATER 1250 MG 1,250 MG/250 ML BAG IVPB SCH ×2 (10:27→21:20)
[2022-03-04] MEDS: ROSUVASTATIN CA 5 MG TABLET PO SCH (21:21)
[2022-03-05] MEDS ORDERED: PIPERACILLIN/TAZOBACTAM 3.375 GM VIAL IVPB ONE ×3 (01:17→16:04)
[2022-03-05] MEDS ORDERED: DEXTROSE 5%-WATER - 50 ML IVPB ONE ×3 (01:17→16:05)
[2022-03-05] MEDS: PIPERACILLIN/TAZOB 3.375 GM 3.375 GM in DEXTROSE 5%-WATER - 50 ML IVPB SCH ×3 (01:55→17:00)
[2022-03-05] MEDS: metFORMIN HCL 500 MG TABLET (FP) PO SCH ×2 (06:36→16:56)
[2022-03-05] MEDS: INSULIN SLIDING SCALE (NOVOLOG) 1 VIAL SQ SCH ×3 (06:36→16:55)
[2022-03-05 08:13] LABS: BASO % 0.8 % (0-2.0); EOS % 4.6 % (0-4.5); HEMATOCRIT 38.2 % (35.4-49); HEMOGLOBIN 12.6 GM/dL (11.7-16.9); LYMPH % 34.8 % (8-40); MCH 24.9 pg (25.7-33.7); MEAN CELL VOLUME 75.3 fl (80-96); MEAN PLT VOLUME 7.2 fl (7.5-11.1); MONO % 15.2 % (3.8-10.2); NEUT % 44.6 % (42.8-82.8); PLATELET COUNT 256 10^3/uL (134-434); RBC 5.08 M/mm3 (4.00-5.60); RDW 16.7 % (11.9-15.9); WHITE BLOOD COUNT 4.7 K/mm3 (4.0-10.0)
[2022-03-05 08:19] LABS: CALCIUM 8.8 mg/dL (8.5-10.1)
[2022-03-05 08:20] LABS: ALBUMIN 2.8 g/dl (3.4-5.0); BLOOD UREA NITROGEN 14.3 mg/dL (7-18)
[2022-03-05 08:24] LABS: BILIRUBIN,TOTAL 0.6 mg/dL (0.2-1)
[2022-03-05 08:25] LABS: TOT PROT 7.5 g/dl (6.4-8.2)
[2022-03-05] MEDS: VANCOMYCIN/WATER 1250 MG 1,250 MG/250 ML BAG IVPB SCH (10:34)
[2022-03-05] MEDS: LOSARTAN POTASSIUM 25 MG TABLET PO SCH (10:35)
[2022-03-05 14:06] VITALS: BP 136/68; PULSE 68; TEMP 98.4
[2022-03-05] MEDS ORDERED: DOXYCYCLINE HYCLATE 100 MG CAPSULE PO SCH (18:00)
== END 2022-03-05 20:15 | disposition home or self-care (01) | DRG 41 ==
LOC: JER 08:52 → JERBED 11:22 → J7W 02-24 00:21
PROVIDERS: ADMIT Internal Medicine; ATTEND Internal Medicine
PROC: 0Y6X0Z0 Detachment at Right 5th Toe, Complete, Open Approach (ICD-10-PCS; principal; 2022-03-01 07:30)
DX: E11.40 Type 2 diabetes mellitus with diabetic neuropathy, unspecified (principal); M86.8X7 Other osteomyelitis, ankle and foot; L02.611 Cutaneous abscess of right foot; L03.031 Cellulitis of right toe; E11.69 Type 2 diabetes mellitus with other specified complication; E78.5 Hyperlipidemia, unspecified; I10 Essential (primary) hypertension; Z79.84 Long term (current) use of oral hypoglycemic drugs
CPT/HCPCS: 36415; 73630-TC-RT-FY; 73660-TC-FY; 73718-TC-RT; 80048; 80053; 82962; 85025; 85610; 85651; 86140; 87040; 87070; 87077; 87186; 87205; 88305-TC; 88311-TC; 94760; 99285-25; C9803-CS; G0463-25; G0480; J1644; U0003; U0005

== ENCOUNTER 2023-06-25 15:03 | Inpatient (IN) | payer OTHER ==
[2023-06-25] MEDS ORDERED: VANCOMYCIN HCL 1,500 MG in DEXTROSE 5%-WATER - 500 ML IVPB ONE (15:53)
[2023-06-25] MEDS ORDERED: PIPERACILLIN/TAZOB 4.5 GM 4.5 GM in DEXTROSE 5%-WATER 100 ML IVPB ONE (16:16)
[2023-06-25] MEDS ORDERED: PIPERACILLIN/TAZOB 4.5 GM 4.5 GM/100 ML BAG IVPB ONE (16:27)
[2023-06-25 16:34] LABS: BASO % 0.8 % (0-2.0); EOS % 0.2 % (0-4.5); HEMATOCRIT 40.2 % (35.4-49); HEMOGLOBIN 12.8 GM/dL (11.7-16.9); LYMPH % 19.4 % (8-40); MCH 25.6 pg (25.7-33.7); MCHC 31.8 g/dl (32.0-35.9); MEAN CELL VOLUME 80.4 fl (80-96); MONO % 7.8 % (3.8-10.2); NEUT % 71.8 % (42.8-82.8); PLATELET COUNT 239 10^3/uL (134-434); RBC 5.01 M/mm3 (4.00-5.60); RDW 16.5 % (11.9-15.9); WHITE BLOOD COUNT 10.9 K/mm3 (4.0-10.0)
[2023-06-25 16:42] LABS: INR 1.13 (0.83-1.09); PROTHROMBIN TIME (PATIENT) 13.1 SEC (9.7-13.0)
[2023-06-25 16:45] LABS: ACTIVATED PTT 26.7 SECONDS (25.2-36.5)
[2023-06-25] MEDS ORDERED: VANCOMYCIN PREMIX 1.5 GM 1,500 MG/300 ML BAG IVPB ONE (16:45)
[2023-06-25 16:52] LABS: POTASSIUM 4.5 mmol/L (3.5-5.1)
[2023-06-25 16:54] LABS: CALCIUM 8.8 mg/dL (8.5-10.1)
[2023-06-25 16:55] LABS: ALBUMIN 3.6 g/dl (3.4-5.0)
[2023-06-25 16:58] LABS: CREATININE 1.1 mg/dL (0.55-1.3)
[2023-06-25 16:59] LABS: BILIRUBIN,TOTAL 0.5 mg/dL (0.2-1); TOT PROT 8.3 g/dl (6.4-8.2)
[2023-06-25] MEDS: PIPERACILLIN/TAZOB 3.375 GM 3.375 GM in DEXTROSE 5%-WATER - 50 ML IVPB SCH (17:07)
[2023-06-25] MEDS ORDERED: ACETAMINOPHEN 500 MG TABLET (FP) PO ONE (17:35)
[2023-06-25 17:42] LABS: ERYTHROCYTE SEDIMENTATION RATE 51 mm/hr (0-20)
[2023-06-25] MEDS ORDERED: ACETAMINOPHEN 325 MG TABLET (FP) ONE (17:48)
[2023-06-26] MEDS: PIPERACILLIN/TAZOB 3.375 GM 3.375 GM in DEXTROSE 5%-WATER - 50 ML IVPB SCH ×3 (01:42→18:01)
[2023-06-26] MEDS ORDERED: ACETAMINOPHEN 500 MG TABLET (FP) PO PRN (01:42)
[2023-06-26] MEDS: metFORMIN HCL 500 MG TABLET (FP) PO SCH ×2 (06:44→17:48)
[2023-06-26] MEDS: INSULIN SLIDING SCALE (NOVOLOG) 1 VIAL SQ SCH ×4 (06:44→22:10)
[2023-06-26] MEDS: ENOXAPARIN NA (PORCINE) 40 MG/0.4 ML DISP.SYRIN SQ SCH (10:01)
[2023-06-26] MEDS: LOSARTAN POTASSIUM 25 MG TABLET PO SCH (10:02)
[2023-06-26] MEDS: ASPIRIN 81 MG CHEWABLE TABLETS PO SCH (10:02)
[2023-06-26 10:30] LABS: BASO % 0.2 % (0-2.0); EOS % 1.2 % (0-4.5); HEMATOCRIT 39.1 % (35.4-49); HEMOGLOBIN 12.5 GM/dL (11.7-16.9); LYMPH % 14.4 % (8-40); MCH 25.8 pg (25.7-33.7); MCHC 31.9 g/dl (32.0-35.9); MEAN CELL VOLUME 80.9 fl (80-96); MEAN PLT VOLUME 9.6 fl (7.5-11.1); NEUT % 74.2 % (42.8-82.8); PLATELET COUNT 225 10^3/uL (134-434); RBC 4.83 M/mm3 (4.00-5.60); RDW 16.7 % (11.9-15.9); WHITE BLOOD COUNT 6.4 K/mm3 (4.0-10.0)
[2023-06-26 11:07] LABS: POTASSIUM 4.3 mmol/L (3.5-5.1)
[2023-06-26 11:24] LABS: BLOOD UREA NITROGEN 16.8 mg/dL (7-18); CALCIUM 8.7 mg/dL (8.5-10.1)
[2023-06-26 11:28] LABS: BILIRUBIN,TOTAL 0.4 mg/dL (0.2-1); TOT PROT 7.5 g/dl (6.4-8.2)
[2023-06-26] MEDS ORDERED: INSULIN (NOVOLOG) ASPART 100 UNITS/ML 10ML VIAL ONE (17:28)
[2023-06-26] MEDS: ROSUVASTATIN CA 5 MG TABLET PO SCH (22:06)
[2023-06-27] MEDS: PIPERACILLIN/TAZOB 3.375 GM 3.375 GM in DEXTROSE 5%-WATER - 50 ML IVPB SCH ×3 (02:10→17:45)
[2023-06-27] MEDS ORDERED: INSULIN (NOVOLOG) ASPART 100 UNITS/ML 10ML VIAL ONE (05:43)
[2023-06-27] MEDS: metFORMIN HCL 500 MG TABLET (FP) PO SCH ×2 (06:06→17:17)
[2023-06-27] MEDS: INSULIN SLIDING SCALE (NOVOLOG) 1 VIAL SQ SCH ×4 (06:12→21:35)
[2023-06-27] MEDS: ENOXAPARIN NA (PORCINE) 40 MG/0.4 ML DISP.SYRIN SQ SCH (10:10)
[2023-06-27] MEDS: LOSARTAN POTASSIUM 25 MG TABLET PO SCH (10:10)
[2023-06-27] MEDS: ASPIRIN 81 MG CHEWABLE TABLETS PO SCH (10:10)
[2023-06-27] MEDS: ROSUVASTATIN CA 5 MG TABLET PO SCH (21:27)
[2023-06-28] MEDS: PIPERACILLIN/TAZOB 3.375 GM 3.375 GM in DEXTROSE 5%-WATER - 50 ML IVPB SCH ×2 (02:07→11:09)
[2023-06-28] MEDS: metFORMIN HCL 500 MG TABLET (FP) PO SCH ×2 (06:55→18:00)
[2023-06-28] MEDS: INSULIN SLIDING SCALE (NOVOLOG) 1 VIAL SQ SCH ×4 (07:01→22:57)
[2023-06-28] MEDS: LOSARTAN POTASSIUM 25 MG TABLET PO SCH (11:09)
[2023-06-28] MEDS: ASPIRIN 81 MG CHEWABLE TABLETS PO SCH (11:09)
[2023-06-28] MEDS: ENOXAPARIN NA (PORCINE) 40 MG/0.4 ML DISP.SYRIN SQ SCH (11:09)
[2023-06-28] MEDS: ROSUVASTATIN CA 5 MG TABLET PO SCH (22:58)
[2023-06-29] MEDS: metFORMIN HCL 500 MG TABLET (FP) PO SCH ×2 (07:07→17:17)
[2023-06-29] MEDS: INSULIN SLIDING SCALE (NOVOLOG) 1 VIAL SQ SCH ×4 (07:08→22:23)
[2023-06-29] MEDS: LOSARTAN POTASSIUM 25 MG TABLET PO SCH (09:37)
[2023-06-29] MEDS: ENOXAPARIN NA (PORCINE) 40 MG/0.4 ML DISP.SYRIN SQ SCH (09:37)
[2023-06-29] MEDS ORDERED: INSULIN (NOVOLOG) ASPART 100 UNITS/ML 10ML VIAL ONE ×2 (12:16→17:12)
[2023-06-29] MEDS: ROSUVASTATIN CA 5 MG TABLET PO SCH (22:23)
[2023-06-30] MEDS: metFORMIN HCL 500 MG TABLET (FP) PO SCH ×2 (07:06→16:58)
[2023-06-30] MEDS: INSULIN SLIDING SCALE (NOVOLOG) 1 VIAL SQ SCH ×4 (07:07→21:38)
[2023-06-30] MEDS: ENOXAPARIN NA (PORCINE) 40 MG/0.4 ML DISP.SYRIN SQ SCH (10:57)
[2023-06-30] MEDS: LOSARTAN POTASSIUM 25 MG TABLET PO SCH (10:57)
[2023-06-30] MEDS ORDERED: INSULIN (NOVOLOG) ASPART 100 UNITS/ML 10ML VIAL ONE (16:46)
[2023-06-30] MEDS: ROSUVASTATIN CA 5 MG TABLET PO SCH (21:28)
[2023-07-01] MEDS ORDERED: INSULIN (NOVOLOG) ASPART 100 UNITS/ML 10ML VIAL ONE ×2 (06:31→17:27)
[2023-07-01] MEDS: metFORMIN HCL 500 MG TABLET (FP) PO SCH ×2 (06:34→17:33)
[2023-07-01] MEDS: INSULIN SLIDING SCALE (NOVOLOG) 1 VIAL SQ SCH ×4 (06:35→22:07)
[2023-07-01] MEDS: LOSARTAN POTASSIUM 25 MG TABLET PO SCH (10:24)
[2023-07-01] MEDS: ROSUVASTATIN CA 5 MG TABLET PO SCH (22:02)
[2023-07-02] MEDS: metFORMIN HCL 500 MG TABLET (FP) PO SCH ×2 (06:19→17:30)
[2023-07-02] MEDS: INSULIN SLIDING SCALE (NOVOLOG) 1 VIAL SQ SCH ×4 (06:20→22:08)
[2023-07-02] MEDS ORDERED: LIDOCAINE HCL 1%, 10 MG/ML (20ML VIAL) ONE (08:35)
[2023-07-02] MEDS ORDERED: MIDAZOLAM HCL 2 MG/2 ML SINGLE DOSE VIAL ONE (08:48)
[2023-07-02] MEDS ORDERED: BUPIVACAINE HCL/PF 0.5% (5 MG/ML) 30 ML VIAL IJ ONE (08:57)
[2023-07-02] MEDS ORDERED: LIDOCAINE HCL 1%, 10 MG/ML (20ML VIAL) NR ONE (08:57)
[2023-07-02] MEDS ORDERED: ONDANSETRON 4 MG/2 ML VIAL IVPUSH PRN (09:28)
[2023-07-02] MEDS ORDERED: LACTATED RINGERS SOLUTION 1,000 ML IV SCH (09:30)
[2023-07-02] MEDS ORDERED: INSULIN (NOVOLOG) ASPART 100 UNITS/ML 10ML VIAL ONE ×2 (12:00→17:28)
[2023-07-02] MEDS: CEFTRIAXONE 2 GM in DEXTROSE 5%-WATER 100 ML IVPB SCH (12:06)
[2023-07-02] MEDS: LOSARTAN POTASSIUM 25 MG TABLET PO SCH (12:07)
[2023-07-02 16:12] LABS: BASO % 0.4 % (0-2.0); EOS % 0.4 % (0-4.5); HEMATOCRIT 41.6 % (35.4-49); HEMOGLOBIN 13.7 GM/dL (11.7-16.9); LYMPH % 40.5 % (8-40); MCH 25.7 pg (25.7-33.7); MCHC 32.9 g/dl (32.0-35.9); MEAN PLT VOLUME 8.3 fl (7.5-11.1); NEUT % 46.7 % (42.8-82.8); PLATELET COUNT 285 10^3/uL (134-434); RBC 5.33 M/mm3 (4.00-5.60); RDW 16.5 % (11.9-15.9); WHITE BLOOD COUNT 6.2 K/mm3 (4.0-10.0)
[2023-07-02 16:49] LABS: POTASSIUM 4.7 mmol/L (3.5-5.1)
[2023-07-02 16:54] LABS: CALCIUM 8.8 mg/dL (8.5-10.1)
[2023-07-02 16:55] LABS: BLOOD UREA NITROGEN 14.5 mg/dL (7-18)
[2023-07-02 16:58] LABS: CREATININE 0.9 mg/dL (0.55-1.3)
[2023-07-02 17:00] LABS: BILIRUBIN,TOTAL 0.2 mg/dL (0.2-1); TOT PROT 7.8 g/dl (6.4-8.2)
[2023-07-02] MEDS: ROSUVASTATIN CA 5 MG TABLET PO SCH (21:56)
[2023-07-02] MEDS: ACETAMINOPHEN 500 MG TABLET (FP) PO PRN (22:09)
[2023-07-03] MEDS: metFORMIN HCL 500 MG TABLET (FP) PO SCH ×2 (06:42→17:12)
[2023-07-03] MEDS: INSULIN SLIDING SCALE (NOVOLOG) 1 VIAL SQ SCH ×4 (06:42→21:45)
[2023-07-03] MEDS: ACETAMINOPHEN 500 MG TABLET (FP) PO PRN (06:42)
[2023-07-03] MEDS ORDERED: INSULIN (NOVOLOG) ASPART 100 UNITS/ML 10ML VIAL ONE ×2 (06:57→21:31)
[2023-07-03] MEDS: CEFTRIAXONE 2 GM in DEXTROSE 5%-WATER 100 ML IVPB SCH (09:35)
[2023-07-03] MEDS: LOSARTAN POTASSIUM 25 MG TABLET PO SCH (09:36)
[2023-07-03] MEDS: valACYclovir HCL 500 MG TABLET (FP) PO SCH ×2 (12:31→21:45)
[2023-07-03] MEDS: ENOXAPARIN NA (PORCINE) 40 MG/0.4 ML DISP.SYRIN SQ SCH (17:19)
[2023-07-03] MEDS: ROSUVASTATIN CA 5 MG TABLET PO SCH (21:45)
[2023-07-03] MEDS: ACETAMINOPHEN 325 MG TABLET (FP) PO PRN (21:45)
[2023-07-04] MEDS: metFORMIN HCL 500 MG TABLET (FP) PO SCH ×2 (06:29→17:00)
[2023-07-04] MEDS: INSULIN SLIDING SCALE (NOVOLOG) 1 VIAL SQ SCH ×4 (06:38→22:02)
[2023-07-04] MEDS ORDERED: INSULIN (NOVOLOG) ASPART 100 UNITS/ML 10ML VIAL ONE ×3 (06:44→21:57)
[2023-07-04 09:24] LABS: HEMATOCRIT 42.2 % (35.4-49); HEMOGLOBIN 13.4 GM/dL (11.7-16.9); MCH 25.4 pg (25.7-33.7); MCHC 31.7 g/dl (32.0-35.9); MEAN CELL VOLUME 79.9 fl (80-96); MEAN PLT VOLUME 8.6 fl (7.5-11.1); PLATELET COUNT 302 10^3/uL (134-434); RBC 5.28 M/mm3 (4.00-5.60); RDW 16.3 % (11.9-15.9); WHITE BLOOD COUNT 5.5 K/mm3 (4.0-10.0)
[2023-07-04 09:42] LABS: POTASSIUM 4.5 mmol/L (3.5-5.1)
[2023-07-04 09:48] LABS: ANISOCYTOSIS 0; HELMET CELLS 0; HOWELL-JOLLY BODIES 0; MACROCYTOSIS 0; OVALOCYTE 0; ROULEAU 0; SICKELED CELLS 0; TARGET CELLS 0; TEAR DROP CELLS 0; TOXIC GRANULATION 0
[2023-07-04 09:53] LABS: ALBUMIN 3.2 g/dl (3.4-5.0); BLOOD UREA NITROGEN 12.5 mg/dL (7-18); CALCIUM 9.1 mg/dL (8.5-10.1)
[2023-07-04 09:56] LABS: CREATININE 0.8 mg/dL (0.55-1.3)
[2023-07-04 09:58] LABS: BILIRUBIN,TOTAL 0.2 mg/dL (0.2-1); TOT PROT 7.9 g/dl (6.4-8.2)
[2023-07-04] MEDS: CEFTRIAXONE 2 GM in DEXTROSE 5%-WATER 100 ML IVPB SCH (10:00)
[2023-07-04] MEDS: ENOXAPARIN NA (PORCINE) 40 MG/0.4 ML DISP.SYRIN SQ SCH (10:00)
[2023-07-04] MEDS: LOSARTAN POTASSIUM 25 MG TABLET PO SCH (10:01)
[2023-07-04] MEDS: valACYclovir HCL 500 MG TABLET (FP) PO SCH ×2 (10:01→22:03)
[2023-07-04] MEDS: ASPIRIN COATED 81 MG TABLET.EC PO SCH (10:01)
[2023-07-04] MEDS: VANCOMYCIN/WATER 1250 MG 1,250 MG/250 ML BAG IVPB SCH (13:39)
[2023-07-04] MEDS: ROSUVASTATIN CA 5 MG TABLET PO SCH (22:02)
[2023-07-05] MEDS: VANCOMYCIN/WATER 1250 MG 1,250 MG/250 ML BAG IVPB SCH ×2 (00:19→12:28)
[2023-07-05] MEDS ORDERED: INSULIN (NOVOLOG) ASPART 100 UNITS/ML 10ML VIAL ONE ×3 (06:02→16:47)
[2023-07-05] MEDS: metFORMIN HCL 500 MG TABLET (FP) PO SCH ×2 (06:21→16:22)
[2023-07-05] MEDS: INSULIN SLIDING SCALE (NOVOLOG) 1 VIAL SQ SCH ×4 (06:22→23:06)
[2023-07-05] MEDS: ENOXAPARIN NA (PORCINE) 40 MG/0.4 ML DISP.SYRIN SQ SCH (09:17)
[2023-07-05] MEDS: LOSARTAN POTASSIUM 25 MG TABLET PO SCH (09:17)
[2023-07-05] MEDS: valACYclovir HCL 500 MG TABLET (FP) PO SCH ×2 (09:17→23:06)
[2023-07-05] MEDS: ASPIRIN COATED 81 MG TABLET.EC PO SCH (09:17)
[2023-07-05] MEDS: CEFTRIAXONE 2 GM in DEXTROSE 5%-WATER 100 ML IVPB SCH (09:17)
[2023-07-05] MEDS: ACETAMINOPHEN 325 MG TABLET (FP) PO PRN (16:21)
[2023-07-05] MEDS: ROSUVASTATIN CA 5 MG TABLET PO SCH (23:06)
[2023-07-06] MEDS: VANCOMYCIN/WATER 1250 MG 1,250 MG/250 ML BAG IVPB SCH ×2 (00:39→13:39)
[2023-07-06] MEDS: metFORMIN HCL 500 MG TABLET (FP) PO SCH ×2 (07:23→17:37)
[2023-07-06] MEDS: INSULIN SLIDING SCALE (NOVOLOG) 1 VIAL SQ SCH ×4 (07:23→21:43)
[2023-07-06] MEDS: ASPIRIN COATED 81 MG TABLET.EC PO SCH (09:46)
[2023-07-06] MEDS: valACYclovir HCL 500 MG TABLET (FP) PO SCH ×2 (09:47→21:58)
[2023-07-06] MEDS: CEFTRIAXONE 2 GM in DEXTROSE 5%-WATER 100 ML IVPB SCH (09:47)
[2023-07-06] MEDS: LOSARTAN POTASSIUM 25 MG TABLET PO SCH (09:47)
[2023-07-06] MEDS: ENOXAPARIN NA (PORCINE) 40 MG/0.4 ML DISP.SYRIN SQ SCH (09:47)
[2023-07-06] MEDS: ROSUVASTATIN CA 5 MG TABLET PO SCH (21:58)
[2023-07-07] MEDS: metFORMIN HCL 500 MG TABLET (FP) PO SCH ×2 (07:08→17:20)
[2023-07-07] MEDS: INSULIN SLIDING SCALE (NOVOLOG) 1 VIAL SQ SCH ×4 (07:09→22:42)
[2023-07-07] MEDS: CEFTRIAXONE 2 GM in DEXTROSE 5%-WATER 100 ML IVPB SCH (11:12)
[2023-07-07] MEDS: ENOXAPARIN NA (PORCINE) 40 MG/0.4 ML DISP.SYRIN SQ SCH (11:12)
[2023-07-07] MEDS: LOSARTAN POTASSIUM 25 MG TABLET PO SCH (11:12)
[2023-07-07] MEDS: valACYclovir HCL 500 MG TABLET (FP) PO SCH ×2 (11:12→22:41)
[2023-07-07] MEDS: ASPIRIN COATED 81 MG TABLET.EC PO SCH (11:12)
[2023-07-07] MEDS: VANCOMYCIN/WATER 1250 MG 1,250 MG/250 ML BAG IVPB SCH (12:38)
[2023-07-07] MEDS ORDERED: INSULIN (NOVOLOG) ASPART 100 UNITS/ML 10ML VIAL ONE ×2 (18:47→21:23)
[2023-07-07] MEDS: ROSUVASTATIN CA 5 MG TABLET PO SCH (22:41)
[2023-07-08] MEDS: VANCOMYCIN/WATER 1250 MG 1,250 MG/250 ML BAG IVPB SCH ×2 (01:01→13:13)
[2023-07-08] MEDS: metFORMIN HCL 500 MG TABLET (FP) PO SCH ×2 (06:17→16:41)
[2023-07-08] MEDS: INSULIN SLIDING SCALE (NOVOLOG) 1 VIAL SQ SCH ×4 (06:18→22:21)
[2023-07-08] MEDS: ENOXAPARIN NA (PORCINE) 40 MG/0.4 ML DISP.SYRIN SQ SCH (09:33)
[2023-07-08] MEDS: LOSARTAN POTASSIUM 25 MG TABLET PO SCH (09:33)
[2023-07-08] MEDS: valACYclovir HCL 500 MG TABLET (FP) PO SCH ×2 (09:33→22:20)
[2023-07-08] MEDS: ASPIRIN COATED 81 MG TABLET.EC PO SCH (09:33)
[2023-07-08] MEDS: CEFTRIAXONE 2 GM in DEXTROSE 5%-WATER 100 ML IVPB SCH (09:33)
[2023-07-08 09:58] LABS: BASO % 0.5 % (0-2.0); HEMATOCRIT 42.8 % (35.4-49); HEMOGLOBIN 13.4 GM/dL (11.7-16.9); LYMPH % 48.2 % (8-40); MCH 24.9 pg (25.7-33.7); MCHC 31.4 g/dl (32.0-35.9); MEAN CELL VOLUME 79.3 fl (80-96); MONO % 10.3 % (3.8-10.2); PLATELET COUNT 287 10^3/uL (134-434); RDW 16.3 % (11.9-15.9); WHITE BLOOD COUNT 4.7 K/mm3 (4.0-10.0)
[2023-07-08 10:26] LABS: POTASSIUM 4.6 mmol/L (3.5-5.1)
[2023-07-08 10:29] LABS: BLOOD UREA NITROGEN 15.3 mg/dL (7-18)
[2023-07-08 10:30] LABS: ALBUMIN 3.2 g/dl (3.4-5.0)
[2023-07-08 10:32] LABS: CREATININE 0.7 mg/dL (0.55-1.3)
[2023-07-08 10:34] LABS: BILIRUBIN,TOTAL 0.3 mg/dL (0.2-1); TOT PROT 8.1 g/dl (6.4-8.2)
[2023-07-08] MEDS ORDERED: INSULIN (NOVOLOG) ASPART 100 UNITS/ML 10ML VIAL ONE ×2 (16:30→22:13)
[2023-07-08] MEDS: ROSUVASTATIN CA 5 MG TABLET PO SCH (22:20)
[2023-07-09] MEDS: VANCOMYCIN/WATER 1250 MG 1,250 MG/250 ML BAG IVPB SCH (01:10)
[2023-07-09] MEDS: INSULIN SLIDING SCALE (NOVOLOG) 1 VIAL SQ SCH ×4 (07:00→21:58)
[2023-07-09] MEDS: ENOXAPARIN NA (PORCINE) 40 MG/0.4 ML DISP.SYRIN SQ SCH (09:34)
[2023-07-09] MEDS: metFORMIN HCL 500 MG TABLET (FP) PO SCH ×2 (09:34→16:53)
[2023-07-09] MEDS: ASPIRIN COATED 81 MG TABLET.EC PO SCH (09:34)
[2023-07-09] MEDS: CEFTRIAXONE 2 GM in DEXTROSE 5%-WATER 100 ML IVPB SCH (09:35)
[2023-07-09] MEDS: LOSARTAN POTASSIUM 25 MG TABLET PO SCH (09:35)
[2023-07-09] MEDS: valACYclovir HCL 500 MG TABLET (FP) PO SCH ×2 (09:35→21:53)
[2023-07-09] MEDS ORDERED: INSULIN (NOVOLOG) ASPART 100 UNITS/ML 10ML VIAL ONE ×2 (11:07→22:15)
[2023-07-09 12:12] VITALS: BMI 27.8
[2023-07-09] MEDS ORDERED: DAPTOMYCIN 850 MG in SODIUM CHLORIDE 50 ML IVPB SCH (13:00)
[2023-07-09] MEDS: AMINO ACIDS/PROTEIN HYDROLYS 30 ML LIQUID.PKT PO SCH (18:37)
[2023-07-10] MEDS ORDERED: INSULIN (NOVOLOG) ASPART 100 UNITS/ML 10ML VIAL ONE (06:31)
[2023-07-10] MEDS: metFORMIN HCL 500 MG TABLET (FP) PO SCH (06:34)
[2023-07-10] MEDS: INSULIN SLIDING SCALE (NOVOLOG) 1 VIAL SQ SCH ×2 (06:42→12:38)
[2023-07-10 07:15] VITALS: RESP 18
[2023-07-10] MEDS ORDERED: DAPTOMYCIN 850 MG in SODIUM CHLORIDE 50 ML IVPB SCH (07:21)
[2023-07-10] MEDS ORDERED: MULTIVITAMINS THER W-MINERALS COMBO TABLET (FP) PO SCH (10:00)
[2023-07-10] MEDS: ENOXAPARIN NA (PORCINE) 40 MG/0.4 ML DISP.SYRIN SQ SCH (10:00)
[2023-07-10] MEDS: valACYclovir HCL 500 MG TABLET (FP) PO SCH (10:00)
[2023-07-10] MEDS: CEFTRIAXONE 2 GM in DEXTROSE 5%-WATER 100 ML IVPB SCH (10:00)
[2023-07-10] MEDS: ASPIRIN COATED 81 MG TABLET.EC PO SCH (10:01)
[2023-07-10] MEDS: AMINO ACIDS/PROTEIN HYDROLYS 30 ML LIQUID.PKT PO SCH (10:01)
[2023-07-10] MEDS: LOSARTAN POTASSIUM 25 MG TABLET PO SCH (10:01)
[2023-07-10 14:26] VITALS: BP 143/66; PULSE 80; TEMP 98.1
== END 2023-07-10 17:06 | disposition home health service (06) | DRG 988 ==
LOC: JER 15:03 → JERBED 17:47 → J8W 06-26 00:12
PROVIDERS: ADMIT Internal Medicine; ATTEND Internal Medicine
PROC: 0Q9Q0ZX Drainage of Right Toe Phalanx, Open Approach, Diagnostic (ICD-10-PCS; principal; 2023-07-02 08:30)
PROC: 02HV33Z Insertion of Infusion Device into Superior Vena Cava, Percutaneous Approach (ICD-10-PCS; 2023-07-10)
PROC: B518ZZA Fluoroscopy of Superior Vena Cava, Guidance (ICD-10-PCS; 2023-07-10)
DX: E11.69 Type 2 diabetes mellitus with other specified complication (principal); L03.90 Cellulitis, unspecified; M86.8X7 Other osteomyelitis, ankle and foot; I10 Essential (primary) hypertension; E78.5 Hyperlipidemia, unspecified; E11.621 Type 2 diabetes mellitus with foot ulcer; L97.519 Non-pressure chronic ulcer of other part of right foot with unspecified severity; E11.51 Type 2 diabetes mellitus with diabetic peripheral angiopathy without gangrene; E11.40 Type 2 diabetes mellitus with diabetic neuropathy, unspecified; I73.9 Peripheral vascular disease, unspecified
CPT/HCPCS: 36415; 36569; 73630-TC-RT-FY; 73718-TC-RT; 76705-TC; 77001-TC-FY; 80053; 82550; 82962; 85025; 85610; 85651; 85730; 86140; 86850; 86900; 86901; 87070; 87075; 87077; 87081; 87186; 87205; 93005; 93010; 94760; 99285-25; C1751; G0480; J0878